=== PATIENT | female | born 1955 | race Caucasian/White ===

== ENCOUNTER 2018-08-01 08:39 | Day surgery (SDC) | payer OTHER ==
[2018-07-27 19:37] VITALS: BMI 23.3
[~2018-08-01 08:39] MED LIST: LIDOCAINE HCL 2% (50ML VIAL) INF ONE
[2018-08-01] MEDS ORDERED: ACETAMINOPHEN 325 MG TABLET (FP) PO PRN (10:05)
[2018-08-01] MEDS ORDERED: ONDANSETRON 4 MG/2 ML VIAL IVPUSH PRN (10:05)
[2018-08-01] MEDS ORDERED: LACTATED RINGERS SOLUTION 1,000 ML IV SCH (10:15)
[2018-08-01] MEDS ORDERED: PROPOFOL 20 ML ONE (10:16)
[2018-08-01] MEDS ORDERED: MIDAZOLAM HCL 2 MG/2 ML SINGLE DOSE VIAL ONE (10:16)
[2018-08-01 11:16] VITALS: PULSE 66; TEMP 97.8
[2018-08-01 11:45] VITALS: BP 129/69
--- NOTE | 2018-08-02 11:27 | OP ---
DATE OF OPERATION: 08/01/2018 SURGEON: Robert Jacobo MD PREOPERATIVE DIAGNOSIS: Left ring trigger-finger. POSTOPERATIVE DIAGNOSIS: Left ring trigger-finger. OPERATIVE PROCEDURE: Left ring trigger-finger release. ANESTHESIA: Local with sedation. COMPLICATIONS: None. ESTIMATED BLOOD LOSS: Minimal. INDICATIONS FOR PROCEDURE: The patient is a 62-year-old female with the above findings, indicated for operative treatment. The risks, benefits, and alternatives were discussed with the patient at length. Proper informed consent was obtained. DESCRIPTION OF PROCEDURE: After proper identification of the patient and the correct operative site, the patient was brought to the operating room and placed supine on the operating room table. All bony prominences were well padded. Sedation and local anesthesia were given. Left upper extremity was prepped and draped in the usual sterile fashion. A tourniquet was inflated to 250 mmHg. A longitudinal incision was made at the ring fingers A1 chinmay. Incision was taken sharply through the skin with blunt dissection down to the A1 chinmay. The chinmay was divided longitudinally. Patient was asked to flex and extend his finger, and no further triggering was noted. Wound was repaired with plain gut suture. Sterile dressings were applied. Patient was brought to the recovery room in stable condition. She tolerated the procedure well. ROBERT JACOBO M.D. [facility]/[id number]
== END 2018-08-01 11:40 | disposition home or self-care (01) ==
LOC: MERGE 08:39 → FASU 08:39
PROVIDERS: ATTEND Orthopaedic Surgery Hand Surgery
PROC: 0LN80ZZ Release Left Hand Tendon, Open Approach (ICD-10-PCS; principal; 2018-08-01 10:30)
DX: M65.342 Trigger finger, left ring finger (principal)
CPT/HCPCS: 82962

== ENCOUNTER 2018-09-03 08:20 | Day surgery (SDC) | payer OTHER ==
[2018-08-30 16:06] VITALS: BMI 23.0
[2018-09-03 08:43] VITALS: TEMP 97.9
[2018-09-03] MEDS ORDERED: PROPOFOL 20 ML ONE ×2 (09:32)
[2018-09-03 10:42] VITALS: BP 143/69; PULSE 82
== END 2018-09-03 10:35 | disposition home or self-care (01) ==
LOC: FASU-ENDO 08:20 → MERGE 08:20 → FASU-ENDO 10:35
PROVIDERS: ATTEND Internal Medicine Gastroenterology
PROC: 0DJD8ZZ Inspection of Lower Intestinal Tract, Via Natural or Artificial Opening Endoscopic (ICD-10-PCS; principal; 2018-09-03 09:49)
DX: Z12.11 Encounter for screening for malignant neoplasm of colon (principal)
CPT/HCPCS: 82962

== ENCOUNTER 2020-08-22 10:40 | Emergency (ER) | payer OTHER ==
[2020-08-22 10:53] VITALS: BP 157/81; PULSE 95; TEMP 97.9; BMI 21.6
[2020-08-22] MEDS ORDERED: FAMOTIDINE 20 MG/50 ML IVPB 20 MG/50 ML MG IVPB ONE ×2 (11:12→11:36)
[2020-08-22] MEDS ORDERED: ACETAMINOPHEN 500 MG TABLET (FP) PO ONE (11:12)
[2020-08-22] MEDS ORDERED: MAG HYDROX/AL HYDROX/SIMETH 30 ML UNIT-DOSE CUP PO ONE (11:12)
[2020-08-22] MEDS ORDERED: MAG HYDROX/AL HYDROX/SIMETH 30 ML UNIT-DOSE CUP ONE (11:36)
[2020-08-22] MEDS ORDERED: ACETAMINOPHEN 500 MG TABLET (FP) ONE (11:36)
[2020-08-22 11:40] LABS: HEMATOCRIT 41.7 % (32.4-45.2); HEMOGLOBIN 13.9 GM/dl (10.7-15.3); MCH 29.4 pg (25.7-33.7); MCHC 33.2 g/dl (32.0-36.0); MEAN CELL VOLUME 88.4 fl (80-96); MEAN PLT VOLUME 8.1 fl (7.5-11.1); PLATELET COUNT 272 K/MM3 (134-434); RBC 4.72 M/mm3 (3.60-5.2); RDW 12.5 % (11.6-15.6); WHITE BLOOD COUNT 13.1 K/mm3 (4.0-10.8)
[2020-08-22 11:54] LABS: EPITHELIAL CELLS FEW /hpf
[2020-08-22 11:56] LABS: ALBUMIN 4.8 g/dl (3.4-5.0); BILIRUBIN,TOTAL 0.9 mg/dl (0.2-1); CALCIUM 9.9 mg/dl (8.5-10); CREATININE 0.9 mg/dl (0.55-1.3); TOT PROT 7.7 g/dl (6.4-8.2)
[2020-08-22 12:21] LABS: PLATELET ESTIMATE ADEQUATE
[2020-08-22 13:15] LABS: LIPASE 237 U/L (73-393)
== END 2020-08-22 14:45 | disposition home or self-care (01) ==
LOC: FER 10:40
PROC: 3E033NZ Introduction of Analgesics, Hypnotics, Sedatives into Peripheral Vein, Percutaneous Approach (ICD-10-PCS; principal; 2020-08-22)
DX: R10.9 Unspecified abdominal pain (principal)
CPT/HCPCS: 36415; 80053; 81003; 81015; 82550; 83605; 83690; 84484; 85025; 93005; 99285-25

== ENCOUNTER 2020-08-23 00:05 | Inpatient (IN) | payer OTHER ==
[2020-08-23] MEDS ORDERED: morphine CARPU-JECT 2 MG/1 ML DISP.SYRIN IVPUSH ONE ×2 (00:21→02:41)
[2020-08-23] MEDS ORDERED: SODIUM CHLORIDE 1,000 ML IV ONE (00:21)
[2020-08-23] MEDS ORDERED: HYOSCYAMINE SULFATE 0.125 MG *ODT PO ONE (00:23)
[2020-08-23] MEDS ORDERED: morphine SULFATE 4 MG/ML VIAL ONE (00:26)
[2020-08-23] MEDS ORDERED: HYOSCYAMINE SULFATE 0.125 MG *ODT ONE (00:27)
[2020-08-23] MEDS ORDERED: ALPRAZolam 1 MG TABLET PO PRN (01:11)
[2020-08-23] MEDS ORDERED: ALPRAZolam 0.25 MG TABLET ONE (01:13)
[2020-08-23 01:48] LABS: BASO % 0.3 % (0-2.0); EOS % 0.1 % (0-4.5); HEMATOCRIT 40.6 % (32.4-45.2); HEMOGLOBIN 13.7 GM/dL (10.7-15.3); LYMPH % 10.8 % (8-40); MCH 29.6 pg (25.7-33.7); MCHC 33.6 g/dl (32.0-36.0); MEAN CELL VOLUME 88.1 fl (80-96); MEAN PLT VOLUME 8.7 fl (7.5-11.1); MONO % 5.7 % (3.8-10.2); NEUT % 83.1 % (42.8-82.8); PLATELET COUNT 353 K/MM3 (134-434); RBC 4.61 M/mm3 (3.60-5.2); RDW 13.5 % (11.6-15.6); WHITE BLOOD COUNT 12.8 K/mm3 (4.0-10.0)
[2020-08-23 02:07] LABS: ALBUMIN 4.6 g/dl (3.4-5.0); BLOOD UREA NITROGEN 16.8 mg/dL (7-18); CALCIUM 10.3 mg/dL (8.5-10.1)
[2020-08-23 02:12] LABS: BILIRUBIN,TOTAL 0.6 mg/dL (0.2-1); TOT PROT 7.9 g/dl (6.4-8.2)
[2020-08-23] MEDS ORDERED: ONDANSETRON 4 MG/2 ML VIAL IVPUSH PRN (02:37)
[2020-08-23] MEDS: SODIUM CHLORIDE 1,000 ML IV SCH (02:53)
[2020-08-23] MEDS: ACETAMINOPHEN 1000 MG/100 ML VIAL (NON FORMULARY) IVPB PRN ×2 (04:58→15:59)
[2020-08-23] MEDS: MORPHINE SULFATE 2 MG/ML VIAL IVPUSH PRN ×2 (09:41→20:48)
[2020-08-23] MEDS: PANTOPRAZOLE SODIUM 40 MG VIAL IVPUSH SCH (09:42)
[2020-08-23] MEDS: INSULIN SLIDING SCALE (NOVOLOG) 1 VIAL SQ SCH ×3 (12:33→21:14)
[2020-08-23] MEDS: HEPARIN NA (PORCINE) 5,000 UNITS/ML 1ML VIAL SQ SCH ×2 (15:59→21:35)
[2020-08-24] MEDS: HEPARIN NA (PORCINE) 5,000 UNITS/ML 1ML VIAL SQ SCH ×3 (05:40→21:33)
[2020-08-24] MEDS: SODIUM CHLORIDE 1,000 ML IV SCH (05:45)
[2020-08-24] MEDS: MORPHINE SULFATE 2 MG/ML VIAL IVPUSH PRN (05:54)
[2020-08-24] MEDS: INSULIN SLIDING SCALE (NOVOLOG) 1 VIAL SQ SCH ×4 (06:02→21:34)
[2020-08-24 07:33] LABS: LYMPH % 3.7 % (8-40)
[2020-08-24 07:43] LABS: BASO % 0.2 % (0-2.0); HEMOGLOBIN 13.7 GM/dl (10.7-15.3); MCH 29.4 pg (25.7-33.7); MCHC 33.4 g/dl (32.0-36.0); MEAN CELL VOLUME 87.8 fl (80-96); MEAN PLT VOLUME 8.5 fl (7.5-11.1); MONO % 7.9 % (3.8-10.2); NEUT % 88.2 % (42.8-82.8); PLATELET COUNT 322 K/MM3 (134-434); RBC 4.67 M/mm3 (3.60-5.2); RDW 12.6 % (11.6-15.6); WHITE BLOOD COUNT 16.5 K/mm3 (4.0-10.8)
[2020-08-24 07:50] LABS: CALCIUM 8.6 mg/dl (8.5-10); CREATININE 0.8 mg/dl (0.55-1.3)
[2020-08-24] MEDS: PANTOPRAZOLE SODIUM 40 MG VIAL IVPUSH SCH (09:37)
[2020-08-24] MEDS ORDERED: SODIUM CHLORIDE 1,000 ML IV SCH (13:29)
[2020-08-24] MEDS ORDERED: PIPERACILLIN/TAZOB 3.375 GM 3.375 GM in SODIUM CHLORIDE 50 ML IVPB SCH (13:45)
[2020-08-24] MEDS ORDERED: PHENOL 177 ML SPRAY BOTTLE MM PRN (13:46)
[2020-08-24] MEDS ORDERED: PIPERACILLIN/TAZOB 3.375 GM 3.375 GM in DEXTROSE 5%-WATER - 50 ML IVPB SCH (14:00)
[2020-08-24] MEDS ORDERED: SODIUM CHLORIDE 500 ML IV STA (14:52)
[2020-08-24] MEDS ORDERED: PIPERACILLIN/TAZOBACTAM 3.375 GM VIAL IVPB ONE ×2 (15:27→18:25)
[2020-08-24] MEDS ORDERED: DEXTROSE 5%-WATER - 50 ML IVPB ONE (15:28)
[2020-08-24] MEDS: ACETAMINOPHEN 1000 MG/100 ML VIAL (NON FORMULARY) IVPB SCH ×2 (15:44→20:47)
[2020-08-24] MEDS ORDERED: SODIUM CHLORIDE 50 ML IVPB ONE (18:25)
[2020-08-24] MEDS: PIPERACILLIN/TAZOB 3.375 GM 3.375 GM in SODIUM CHLORIDE 50 ML IVPB SCH (18:32)
[2020-08-24 20:06] LABS: EPITHELIAL CELLS FEW /hpf
[2020-08-25] MEDS ORDERED: PIPERACILLIN/TAZOBACTAM 3.375 GM VIAL IVPB ONE ×2 (01:09→09:40)
[2020-08-25] MEDS ORDERED: SODIUM CHLORIDE 50 ML IVPB ONE ×2 (01:10→09:40)
[2020-08-25] MEDS: PIPERACILLIN/TAZOB 3.375 GM 3.375 GM in SODIUM CHLORIDE 50 ML IVPB SCH (01:23)
[2020-08-25] MEDS: ACETAMINOPHEN 1000 MG/100 ML VIAL (NON FORMULARY) IVPB SCH ×2 (01:58→08:50)
[2020-08-25] MEDS: HEPARIN NA (PORCINE) 5,000 UNITS/ML 1ML VIAL SQ SCH ×2 (05:55→23:15)
[2020-08-25] MEDS: INSULIN SLIDING SCALE (NOVOLOG) 1 VIAL SQ SCH ×3 (06:05→23:16)
[2020-08-25 07:44] LABS: BASO % 0.5 % (0-2.0); EOS % 0.3 % (0-4.5); HEMATOCRIT 37.8 % (32.4-45.2); HEMOGLOBIN 12.7 GM/dl (10.7-15.3); LYMPH % 7.2 % (8-40); MCH 29.9 pg (25.7-33.7); MCHC 33.7 g/dl (32.0-36.0); MEAN CELL VOLUME 88.7 fl (80-96); MEAN PLT VOLUME 8.3 fl (7.5-11.1); MONO % 12.1 % (3.8-10.2); NEUT % 79.9 % (42.8-82.8); PLATELET COUNT 284 K/MM3 (134-434); RBC 4.26 M/mm3 (3.60-5.2); WHITE BLOOD COUNT 3.5 K/mm3 (4.0-10.8)
[2020-08-25 07:52] LABS: ALBUMIN 2.8 g/dl (3.4-5.0); BILIRUBIN,TOTAL 1.4 mg/dl (0.2-1); CALCIUM 8.3 mg/dl (8.5-10); CREATININE 0.8 mg/dl (0.55-1.3); MAGNESIUM 2.3 mg/dL (1.8-2.4); TOT PROT 5.6 g/dl (6.4-8.2)
[2020-08-25] MEDS: PANTOPRAZOLE SODIUM 40 MG VIAL IVPUSH SCH (09:38)
[2020-08-25] MEDS ORDERED: PIPERACILLIN/TAZOB 3.375 GM 3.375 GM in SODIUM CHLORIDE 50 ML IVPB SCH ×2 (10:00→18:00)
[2020-08-25] MEDS ORDERED: LIDOCAINE HCL 2% 100 MG/5 ML DISP.SYRIN ONE (14:18)
[2020-08-25] MEDS ORDERED: fentaNYL CITRATE 250 MCG/5 ML VIAL ONE (14:18)
[2020-08-25] MEDS ORDERED: SUCCINYLCHOLINE CHLORIDE 200 MG/10 ML SYRINGE ONE (14:19)
[2020-08-25] MEDS ORDERED: PROPOFOL 20 ML ONE ×3 (14:19→15:58)
[2020-08-25] MEDS ORDERED: ROCURONIUM BROMIDE 50 MG/5 ML SYRINGE ONE (14:38)
[2020-08-25] MEDS ORDERED: ONDANSETRON 4 MG/2 ML VIAL ONE (14:52)
[2020-08-25] MEDS ORDERED: HYDROmorphone HCl 2 MG/ML VIAL ONE (15:04)
[2020-08-25] MEDS ORDERED: GLYCOPYRROLATE 0.2 MG/1 ML VIAL ONE ×3 (15:10)
[2020-08-25] MEDS ORDERED: NEOSTIGMINE METHYLSULFATE 0.5 MG/1 ML - 10 ML MDV ONE (15:10)
[2020-08-25] MEDS ORDERED: LABETALOL HCL 5 MG/1 ML (100MG/20 ML VIAL) ONE (15:59)
[2020-08-25] MEDS ORDERED: ONDANSETRON 4 MG/2 ML VIAL IVPUSH PRN ×2 (16:28→17:13)
[2020-08-25] MEDS ORDERED: LACTATED RINGERS SOLUTION 1,000 ML IV SCH (16:30)
[2020-08-25] MEDS ORDERED: BACITRACIN 15 GM TUBE TOPICAL OINTMENT ONE (16:50)
[2020-08-25] MEDS ORDERED: PHENOL 177 ML SPRAY BOTTLE MM PRN (17:13)
[2020-08-25] MEDS ORDERED: ALPRAZolam 0.25 MG TABLET PO ONE (17:13)
[2020-08-25] MEDS ORDERED: HYDROmorphone *PCA* 10MG/50ML DISP.SYRIN ONE (18:58)
[2020-08-25] MEDS ORDERED: ACETAMINOPHEN INJECTION 100 ML IVPB ONE (18:58)
[2020-08-25] MEDS ORDERED: ACETAMINOPHEN 1000 MG/100 ML VIAL (NON FORMULARY) IVPB ONE (19:00)
[2020-08-25] MEDS: HYDROmorphone *PCA* 10MG/50ML DISP.SYRIN PCA SCH (19:05)
[2020-08-25] MEDS: SODIUM CHLORIDE 1,000 ML IV SCH (19:51)
[2020-08-26] MEDS: SODIUM CHLORIDE 1,000 ML IV SCH ×3 (01:00→18:50)
[2020-08-26] MEDS: HEPARIN NA (PORCINE) 5,000 UNITS/ML 1ML VIAL SQ SCH ×4 (05:33→21:26)
[2020-08-26] MEDS: INSULIN SLIDING SCALE (NOVOLOG) 1 VIAL SQ SCH ×5 (06:35→21:26)
[2020-08-26] MEDS: HYDROmorphone *PCA* 10MG/50ML DISP.SYRIN PCA SCH ×2 (07:48→17:12)
[2020-08-26 08:40] LABS: BASO % 0.2 % (0-2.0); EOS % 0.1 % (0-4.5); HEMOGLOBIN 11.1 GM/dL (10.7-15.3); LYMPH % 9.4 % (8-40); MCH 29.8 pg (25.7-33.7); MCHC 33.6 g/dl (32.0-36.0); MEAN CELL VOLUME 88.7 fl (80-96); MONO % 8.4 % (3.8-10.2); NEUT % 81.9 % (42.8-82.8); PLATELET COUNT 263 K/MM3 (134-434); RBC 3.72 M/mm3 (3.60-5.2); RDW 13.8 % (11.6-15.6); WHITE BLOOD COUNT 4.5 K/mm3 (4.0-10.0)
[2020-08-26 09:21] LABS: BLOOD UREA NITROGEN 15.4 mg/dL (7-18); MAGNESIUM 2.5 mg/dL (1.8-2.4)
[2020-08-26 09:24] LABS: CREATININE 0.6 mg/dL (0.55-1.3)
[2020-08-26 09:25] LABS: BILIRUBIN,TOTAL 0.4 mg/dL (0.2-1)
[2020-08-26 09:32] LABS: CALCIUM 8.2 mg/dL (8.5-10.1)
[2020-08-26] MEDS: PANTOPRAZOLE SODIUM 40 MG VIAL IVPUSH SCH (10:21)
[2020-08-26] MEDS ORDERED: INSULIN (NOVOLOG) ASPART 100 UNITS/ML 10ML VIAL ONE ×3 (10:56→16:49)
[2020-08-26] MEDS ORDERED: MELATONIN 5 MG TABLETS PO ONE (23:31)
[2020-08-26] MEDS ORDERED: morphine CARPU-JECT 2 MG/1 ML DISP.SYRIN IVPUSH ONE (23:46)
[2020-08-27] MEDS: INSULIN SLIDING SCALE (NOVOLOG) 1 VIAL SQ SCH ×4 (06:00→22:52)
[2020-08-27] MEDS: HEPARIN NA (PORCINE) 5,000 UNITS/ML 1ML VIAL SQ SCH ×3 (06:01→22:50)
[2020-08-27 07:48] LABS: BASO % 0.1 % (0-2.0); EOS % 0.3 % (0-4.5); HEMATOCRIT 29.2 % (32.4-45.2); HEMOGLOBIN 9.8 GM/dL (10.7-15.3); LYMPH % 10.3 % (8-40); MCH 29.8 pg (25.7-33.7); MCHC 33.4 g/dl (32.0-36.0); MEAN CELL VOLUME 89.2 fl (80-96); MEAN PLT VOLUME 7.4 fl (7.5-11.1); MONO % 8.6 % (3.8-10.2); NEUT % 80.7 % (42.8-82.8); PLATELET COUNT 254 K/MM3 (134-434); RBC 3.28 M/mm3 (3.60-5.2); RDW 14.2 % (11.6-15.6); WHITE BLOOD COUNT 5.9 K/mm3 (4.0-10.0)
[2020-08-27 08:05] LABS: CHLORIDE 112 mmol/L (98-107); SODIUM 147 mmol/L (136-145)
[2020-08-27 08:10] LABS: CALCIUM 8.1 mg/dL (8.5-10.1)
[2020-08-27 08:11] LABS: ALBUMIN 1.9 g/dl (3.4-5.0); ANION GAP 8 MMOL/L (8-16); BLOOD UREA NITROGEN 12.4 mg/dL (7-18); CO2 27 mmol/L (21-32); GLUCOSE,RANDOM 158 mg/dL (74-106); MAGNESIUM 2.3 mg/dL (1.8-2.4)
[2020-08-27 08:13] LABS: SGPT/ALT 22 U/L (13-61)
[2020-08-27 08:14] LABS: BILIRUBIN,TOTAL 0.4 mg/dL (0.2-1); CREATININE 0.6 mg/dL (0.55-1.3); SGOT/AST 13 U/L (15-37)
[2020-08-27 08:15] LABS: TOT PROT 4.9 g/dl (6.4-8.2)
[2020-08-27 08:16] LABS: ALK PHOS 80 U/L (45-117)
[2020-08-27 09:06] LABS: ANISOCYTOSIS 0; MACROCYTOSIS 0; PLATELET ESTIMATE NORMAL
[2020-08-27] MEDS ORDERED: POTASSIUM PHOSPHATE 30 MM in SODIUM CHLORIDE 500 ML IVPB ONE (10:00)
[2020-08-27] MEDS: PANTOPRAZOLE SODIUM 40 MG VIAL IVPUSH SCH (10:18)
[2020-08-27] MEDS ORDERED: ACETAMINOPHEN 1000 MG/100 ML VIAL (NON FORMULARY) IVPB PRN (10:38)
[2020-08-27] MEDS: SODIUM CHLORIDE 1,000 ML IV SCH ×2 (10:39→19:14)
[2020-08-27] MEDS: HYDROmorphone *PCA* 10MG/50ML DISP.SYRIN PCA SCH (17:28)
[2020-08-28] MEDS: SODIUM CHLORIDE 1,000 ML IV SCH ×3 (02:49→22:47)
[2020-08-28] MEDS: HEPARIN NA (PORCINE) 5,000 UNITS/ML 1ML VIAL SQ SCH ×3 (06:08→21:31)
[2020-08-28] MEDS: INSULIN SLIDING SCALE (NOVOLOG) 1 VIAL SQ SCH ×4 (06:09→21:36)
[2020-08-28] MEDS ORDERED: INSULIN (NOVOLOG) ASPART 100 UNITS/ML 10ML VIAL ONE ×2 (06:53→16:45)
[2020-08-28 08:09] LABS: BASO % 0.1 % (0-2.0); EOS % 0.1 % (0-4.5); HEMATOCRIT 28.3 % (32.4-45.2); HEMOGLOBIN 9.3 GM/dL (10.7-15.3); LYMPH % 8.5 % (8-40); MCH 29.6 pg (25.7-33.7); MCHC 32.8 g/dl (32.0-36.0); MEAN PLT VOLUME 7.5 fl (7.5-11.1); MONO % 7.5 % (3.8-10.2); NEUT % 83.8 % (42.8-82.8); PLATELET COUNT 252 K/MM3 (134-434); RBC 3.14 M/mm3 (3.60-5.2); RDW 14.4 % (11.6-15.6); WHITE BLOOD COUNT 7.6 K/mm3 (4.0-10.0)
[2020-08-28 08:30] LABS: ALBUMIN 1.8 g/dl (3.4-5.0); BLOOD UREA NITROGEN 14.5 mg/dL (7-18); CALCIUM 8.1 mg/dL (8.5-10.1); MAGNESIUM 2.2 mg/dL (1.8-2.4)
[2020-08-28 08:33] LABS: CREATININE 0.7 mg/dL (0.55-1.3)
[2020-08-28 08:34] LABS: PHOSPHOROUS 1.6 mg/dL (2.5-4.9); TOT PROT 4.9 g/dl (6.4-8.2)
[2020-08-28 08:39] LABS: BILIRUBIN,TOTAL 0.4 mg/dL (0.2-1)
[2020-08-28] MEDS ORDERED: POTASSIUM PHOSPHATE 30 MM in SODIUM CHLORIDE 500 ML IVPB ONE ×2 (09:24→09:39)
[2020-08-28] MEDS: PANTOPRAZOLE SODIUM 40 MG VIAL IVPUSH SCH (09:37)
[2020-08-28] MEDS ORDERED: PT OWN MED DRAWER 7, Y5N ONE (11:04)
[2020-08-28 11:44] LABS: ANISOCYTOSIS 1+; MACROCYTOSIS 1+; PLATELET ESTIMATE NORMAL
[2020-08-28] MEDS ORDERED: ACETAMINOPHEN 1000 MG/100 ML VIAL (NON FORMULARY) IVPB PRN (12:18)
[2020-08-28] MEDS ORDERED: traMADol HCL 50 MG TABLET PO PRN (12:18)
[2020-08-28] MEDS ORDERED: PCA PUMP NR ONE (14:38)
[2020-08-28] MEDS ORDERED: MELATONIN 5 MG TABLETS PO ONE (23:22)
[2020-08-29] MEDS: SODIUM CHLORIDE 1,000 ML IV SCH ×2 (03:17→17:44)
[2020-08-29] MEDS: HEPARIN NA (PORCINE) 5,000 UNITS/ML 1ML VIAL SQ SCH ×3 (05:28→21:22)
[2020-08-29] MEDS: INSULIN SLIDING SCALE (NOVOLOG) 1 VIAL SQ SCH ×4 (06:27→21:25)
[2020-08-29 08:34] LABS: BASO % 0.2 % (0-2.0); EOS % 0.2 % (0-4.5); HEMATOCRIT 30.3 % (32.4-45.2); HEMOGLOBIN 10.1 GM/dL (10.7-15.3); LYMPH % 10.4 % (8-40); MCH 29.3 pg (25.7-33.7); MCHC 33.4 g/dl (32.0-36.0); MEAN CELL VOLUME 87.8 fl (80-96); MEAN PLT VOLUME 7.6 fl (7.5-11.1); MONO % 9.7 % (3.8-10.2); NEUT % 79.5 % (42.8-82.8); PLATELET COUNT 340 K/MM3 (134-434); RBC 3.45 M/mm3 (3.60-5.2); WHITE BLOOD COUNT 11.4 K/mm3 (4.0-10.0)
[2020-08-29 08:54] LABS: CHLORIDE 112 mmol/L (98-107); SODIUM 145 mmol/L (136-145)
[2020-08-29 09:00] LABS: CALCIUM 7.5 mg/dL (8.5-10.1)
[2020-08-29 09:01] LABS: ALBUMIN 1.9 g/dl (3.4-5.0); BLOOD UREA NITROGEN 10.5 mg/dL (7-18); CO2 23 mmol/L (21-32); GLUCOSE,RANDOM 178 mg/dL (74-106); MAGNESIUM 1.8 mg/dL (1.8-2.4)
[2020-08-29 09:03] LABS: SGPT/ALT 23 U/L (13-61)
[2020-08-29 09:04] LABS: CREATININE 0.7 mg/dL (0.55-1.3); PHOSPHOROUS 2.3 mg/dL (2.5-4.9); SGOT/AST 20 U/L (15-37)
[2020-08-29 09:05] LABS: BILIRUBIN,TOTAL 0.8 mg/dL (0.2-1); TOT PROT 4.8 g/dl (6.4-8.2)
[2020-08-29 09:06] LABS: ALK PHOS 93 U/L (45-117)
[2020-08-29 09:25] LABS: ANION GAP 11 MMOL/L (8-16)
[2020-08-29] MEDS: PANTOPRAZOLE SODIUM 40 MG VIAL IVPUSH SCH (09:40)
[2020-08-29] MEDS: KCL 10 MEQ IVPB 10 MEQ/100 ML INFUS.BAG IVPB SCH ×2 (10:29→12:53)
[2020-08-29 12:14] LABS: ANISOCYTOSIS 0; MACROCYTOSIS 0; PLATELET ESTIMATE NORMAL
[2020-08-29] MEDS: POTASSIUM CHLORIDE 40 MEQ in SODIUM CHLORIDE 0.45% 1,000 ML IV SCH ×3 (13:17→22:20)
[2020-08-29] MEDS: MELATONIN 5 MG TABLETS PO SCH (23:50)
[2020-08-30] MEDS: HEPARIN NA (PORCINE) 5,000 UNITS/ML 1ML VIAL SQ SCH ×3 (05:59→21:01)
[2020-08-30] MEDS: INSULIN SLIDING SCALE (NOVOLOG) 1 VIAL SQ SCH ×4 (06:01→21:03)
[2020-08-30 08:34] LABS: BASO % 0.1 % (0-2.0); EOS % 0.8 % (0-4.5); HEMATOCRIT 32.4 % (32.4-45.2); LYMPH % 10.1 % (8-40); MCH 29.6 pg (25.7-33.7); MEAN CELL VOLUME 87.1 fl (80-96); MEAN PLT VOLUME 7.7 fl (7.5-11.1); MONO % 9.5 % (3.8-10.2); NEUT % 79.5 % (42.8-82.8); PLATELET COUNT 353 K/MM3 (134-434); RBC 3.72 M/mm3 (3.60-5.2); RDW 13.9 % (11.6-15.6); WHITE BLOOD COUNT 11.2 K/mm3 (4.0-10.0)
[2020-08-30 09:00] LABS: CALCIUM 7.7 mg/dL (8.5-10.1)
[2020-08-30 09:01] LABS: BLOOD UREA NITROGEN 5.2 mg/dL (7-18)
[2020-08-30 09:04] LABS: CREATININE 0.6 mg/dL (0.55-1.3)
[2020-08-30 09:05] LABS: BILIRUBIN,TOTAL 0.8 mg/dL (0.2-1)
[2020-08-30 09:06] LABS: TOT PROT 4.8 g/dl (6.4-8.2)
[2020-08-30] MEDS ORDERED: POTASSIUM CHLORIDE TABS 20 MEQ TABLET.ER (FP) PO ONE ×2 (09:30→17:59)
[2020-08-30 10:20] LABS: ANISOCYTOSIS 1+
[2020-08-30 10:21] LABS: PLATELET ESTIMATE NORMAL
[2020-08-30] MEDS: PANTOPRAZOLE SODIUM 40 MG VIAL IVPUSH SCH (10:23)
[2020-08-30] MEDS ORDERED: KCL 10 MEQ IVPB 10 MEQ/100 ML INFUS.BAG IVPB SCH (17:15)
[2020-08-30] MEDS: MELATONIN 5 MG TABLETS PO SCH (22:40)
[2020-08-31] MEDS: HEPARIN NA (PORCINE) 5,000 UNITS/ML 1ML VIAL SQ SCH ×2 (05:40→14:38)
[2020-08-31] MEDS: INSULIN SLIDING SCALE (NOVOLOG) 1 VIAL SQ SCH ×3 (06:00→16:29)
[2020-08-31 08:11] LABS: BASO % 0.3 % (0-2.0); HEMATOCRIT 30.6 % (32.4-45.2); HEMOGLOBIN 10.5 GM/dL (10.7-15.3); LYMPH % 12.2 % (8-40); MCH 29.9 pg (25.7-33.7); MCHC 34.4 g/dl (32.0-36.0); MEAN CELL VOLUME 86.8 fl (80-96); MEAN PLT VOLUME 7.4 fl (7.5-11.1); MONO % 10.3 % (3.8-10.2); NEUT % 76.2 % (42.8-82.8); PLATELET COUNT 310 K/MM3 (134-434); RBC 3.53 M/mm3 (3.60-5.2); RDW 13.9 % (11.6-15.6)
[2020-08-31 08:30] LABS: ALBUMIN 1.8 g/dl (3.4-5.0); BLOOD UREA NITROGEN 4.2 mg/dL (7-18); CALCIUM 8.3 mg/dL (8.5-10.1); MAGNESIUM 1.6 mg/dL (1.8-2.4)
[2020-08-31 08:33] LABS: CREATININE 0.6 mg/dL (0.55-1.3)
[2020-08-31 08:34] LABS: BILIRUBIN,TOTAL 0.7 mg/dL (0.2-1); TOT PROT 4.6 g/dl (6.4-8.2)
[2020-08-31] MEDS ORDERED: MAGNESIUM SULF 50% (8.12 MEQ/2 ML-1 GM VIAL) IVPB ONE ×2 (08:35→09:06)
[2020-08-31] MEDS ORDERED: KCL 10 MEQ IVPB 10 MEQ/100 ML INFUS.BAG IVPB SCH (08:45)
[2020-08-31] MEDS ORDERED: POTASSIUM CHLORIDE TABS 20 MEQ TABLET.ER (FP) PO ONE (09:37)
[2020-08-31] MEDS ORDERED: PANTOPRAZOLE 40 MG TABLET PO SCH (10:00)
[2020-08-31] MEDS ORDERED: PT OWN MED DRAWER 7, Y5N ONE (10:19)
[2020-08-31 13:09] LABS: ANISOCYTOSIS 0; MACROCYTOSIS 0; PLATELET ESTIMATE NORMAL
[2020-08-31 15:42] VITALS: BP 117/63; PULSE 86; TEMP 97.4
[2020-08-31 17:31] VITALS: BMI 22.3
== END 2020-08-31 19:14 | disposition home or self-care (01) | DRG 330 ==
LOC: SUPCPDRO 00:05 → FER 00:05 → FM/S 03:41 → J2C 08-25 13:41 → J8W 08-25 20:25
PROVIDERS: ADMIT Hospitalist; ATTEND Internal Medicine
PROC: 0DTB0ZZ Resection of Ileum, Open Approach (ICD-10-PCS; principal; 2020-08-25 12:30)
DX: K56.609 Unspecified intestinal obstruction, unspecified as to partial versus complete obstruction (principal); E87.0 Hyperosmolality and hypernatremia; K55.9 Vascular disorder of intestine, unspecified; E87.6 Hypokalemia; E11.9 Type 2 diabetes mellitus without complications; E78.5 Hyperlipidemia, unspecified; R00.0 Tachycardia, unspecified; D72.829 Elevated white blood cell count, unspecified
CPT/HCPCS: 36415; 71046-TC-FY; 74019-TC-FY; 74177-TC; 74251-TC-FY; 80048; 80053; 81003; 81015; 82310; 82330; 82962; 83036; 83605; 83690; 83735; 83970; 84100; 84439; 84443; 85025; 86850; 86900; 86901; 87040; 87077; 87086; 93005; 94760; 97116-GP; 97161-GP; 99285-25; C9803; J0131; J1644; Q9967; U0003; U0005

== ENCOUNTER 2022-04-01 15:30 | Emergency (ER) | payer OTHER, MEDICARE ==
[2022-04-01] MEDS ORDERED: DIPHTH,PERTUSS(ACELL),TET 0.5 ML DISP.SYRIN IM ONE ×2 (15:49→16:06)
[2022-04-01 15:58] VITALS: BP 165/113; PULSE 70; RESP 16; TEMP 98.2; BMI 21.2
[2022-04-01] MEDS ORDERED: AMOX TR/POT CLAV 875MG/125MG TABLETS (FP) PO ONE (16:28)
[2022-04-01] MEDS ORDERED: AMOX TR/POT CLAV 875MG/125MG TABLETS (FP) ONE (16:31)
== END 2022-04-01 16:48 | disposition home or self-care (01) ==
LOC: FER 15:30
PROC: 3E0234Z Introduction of Serum, Toxoid and Vaccine into Muscle, Percutaneous Approach (ICD-10-PCS; principal; 2022-04-01)
DX: S61.452A Open bite of left hand, initial encounter (principal); W54.0XXA Bitten by dog, initial encounter
CPT/HCPCS: 90471; 90715; 99283-25

== ENCOUNTER 2022-07-15 03:59 | Day surgery (SDC) | payer OTHER, MEDICARE ==
[2022-07-13 09:41] VITALS: BMI 21.6
[2022-07-15] MEDS ORDERED: LIDOCAINE HCL 1% PRESERVATIVE FREE - 30ML VIAL IJ ONE ×2 (10:06→10:26)
[2022-07-15] MEDS ORDERED: DEXAMETHASONE SOD PHOSPHATE 10 MG/1 ML VIAL IVPUSH ONE ×3 (10:06→10:32)
[2022-07-15] MEDS ORDERED: IOHEXOL 180 MG/1 ML ML IJ ONE ×3 (10:07→10:30)
[2022-07-15 10:54] VITALS: BP 140/64; PULSE 65; RESP 20; TEMP 97.1
== END 2022-07-15 11:25 | disposition home or self-care (01) ==
LOC: JASU-SURG 03:59
PROVIDERS: ATTEND Pain Medicine Pain Medicine
PROC: 3E0R3BZ Introduction of Anesthetic Agent into Spinal Canal, Percutaneous Approach (ICD-10-PCS; 2022-07-15)
PROC: 3E0R33Z Introduction of Anti-inflammatory into Spinal Canal, Percutaneous Approach (ICD-10-PCS; principal; 2022-07-15 10:45)
DX: M54.16 Radiculopathy, lumbar region (principal); E11.9 Type 2 diabetes mellitus without complications; Z79.84 Long term (current) use of oral hypoglycemic drugs
CPT/HCPCS: 76000-TC-FY; J1100